=== PATIENT | male | born 1990 | race African-American/Black ===

== ENCOUNTER 2017-11-10 11:31 | Emergency (ER) | payer MEDICARE, MEDICAID ==
[2017-11-10] MEDS ORDERED: Ketorolac Tromethamine 60 MG/2 ML VIAL ONE (12:00)
== END 2017-11-10 12:20 | disposition home or self-care (01) ==
LOC: ERS 11:31
DX: M62.830 Muscle spasm of back (principal); B20 Human immunodeficiency virus [HIV] disease; F32.9 Major depressive disorder, single episode, unspecified; F17.210 Nicotine dependence, cigarettes, uncomplicated; Z79.899 Other long term (current) drug therapy
CPT/HCPCS: 96372; J1885

== ENCOUNTER 2018-02-11 17:51 | Emergency (ER) | payer MEDICARE, MEDICAID | END 2018-02-11 18:27 | disposition home or self-care (01) | LOC: ERS 17:51 | DX: M62.830 Muscle spasm of back (principal); F17.210 Nicotine dependence, cigarettes, uncomplicated; B20 Human immunodeficiency virus [HIV] disease; Z79.899 Other long term (current) drug therapy | CPT/HCPCS: 99283 ==

== ENCOUNTER 2019-07-25 04:34 | Emergency (ER) | payer MEDICARE, OTHER ==
[2019-07-25] MEDS ORDERED: Sterile Water 10 ML ONE (05:03)
[2019-07-25] MEDS ORDERED: cefTRIAXone\\ROCEPHIN 250 MG VIAL ONE (05:03)
[2019-07-25] MEDS ORDERED: Azithromycin 250 MG TAB ONE (05:03)
[2019-07-25 05:20] LABS: Bacteria/HPF None Seen HPF (None Seen); Bilirubin Negative (Negative); Blood, Urine Negative (Negative); Clarity Clear (Clear); Glucose, Urine (Dipstick) Normal (Negative); Leukocyte Negative Leu/uL (Negative); Nitrite Negative (Negative); Protein, Urine (Dipstick) 50 mg/dL (Neg-Trace); RBC/HPF 0-3 HPF (0-3); Squamous Epithelial None Seen HPF (0-3); Urobilinogen 3 mg/dL (Less than 2); WBC/HPF 0-3 HPF (0-3)
== END 2019-07-25 05:25 | disposition home or self-care (01) ==
LOC: ERS 04:34
DX: R30.0 Dysuria (principal); B20 Human immunodeficiency virus [HIV] disease; F32.9 Major depressive disorder, single episode, unspecified; F17.210 Nicotine dependence, cigarettes, uncomplicated; Z79.899 Other long term (current) drug therapy
CPT/HCPCS: 81003; 81015; 96372; 99283; J0696

== ENCOUNTER 2020-01-03 10:09 | Emergency (ER) | payer BC, MEDICARE, OTHER | END 2020-01-03 10:48 | disposition home or self-care (01) | LOC: ERS 10:09 | DX: K60.2 Anal fissure, unspecified (principal); K62.5 Hemorrhage of anus and rectum; B20 Human immunodeficiency virus [HIV] disease; F32.9 Major depressive disorder, single episode, unspecified; F17.210 Nicotine dependence, cigarettes, uncomplicated; Z79.899 Other long term (current) drug therapy | CPT/HCPCS: 99283 ==

== ENCOUNTER 2020-01-05 18:46 | Emergency (ER) | payer BC, MEDICARE, OTHER ==
[2020-01-05 19:56] LABS: #Basophils 0.1 thou/uL (0.0-0.2); #Eosinphils 0.1 thou/uL (0.0-0.7); #Lymphocytes 3.1 thou/uL (1.20-3.40); #Monocytes 0.9 thou/uL (0.11-0.59); #Neutrophils 4.3 thou/uL (1.40-6.50); %Basophils 1.2 % (0.0-1.0); %Eosinophils 1.1 % (0.0-10.0); %Lymphocytes 36.4 % (21.0-51.0); %Monocytes 10.3 % (0.0-10.0); %Neutrophils 51.1 % (42.0-75.0); Hemoglobin 14.4 g/dL (14.0-18.0); Mean Corpuscular HGB CONC 33.9 g/dL (32.0-36.0); Mean Corpuscular Hemoglobin 30.9 pg (27.0-31.0); Mean Corpuscular Volume 91.2 fL (78.0-98.0); Mean Platelet Volume 7.3 fL (7.4-10.4); Platelet Count 287 thou/uL (130-400); RBC Distribution Width 12.7 % (11.5-14.5); Red Blood Cell (RBC) Count 4.67 mill/uL (4.70-6.10); White Blood Cell (WBC) Count 8.5 thou/uL (4.8-10.8)
[2020-01-05 20:16] LABS: ALT (SGPT) 7 U/L (8-55); AST (SGOT) 16 U/L (5-34); Albumin 3.4 g/dL (3.5-5.0); Alkaline Phosphatase 61 U/L (40-110); Anion Gap 13 mmol/L (10-20); BUN (Urea Nitrogen) 10 mg/dL (8.9-20.6); Bilirubin, Total 0.3 mg/dL (0.2-1.2); Calc. Creatinine Clearance 0 mL/min (70-130); Calcium 8.8 mg/dL (7.8-10.44); Carbon Dioxide 27 mmol/L (22-29); Chloride 99 mmol/L (98-107); Estimated GFR-MDRD Greater than 90; Globulin 4.2 g/dL (2.4-3.5); Glucose 101 mg/dL (70-105); Potassium 4.1 mmol/L (3.5-5.1); Protein, Total 7.6 g/dL (6.0-8.3); Sodium 135 mmol/L (136-145)
--- NOTE | 2020-01-05 21:06 | CT ---
CT ABDOMEN AND PELVIS WITH IV CONTRAST: 01/05/20 INDICATIONS: Rectal pain. Assess for perirectal abscess. FINDINGS: The lung bases are clear. Liver, spleen and pancreas unremarkable. The spleen size is upper normal me asured at 12 cm. Adrenal glands and kidneys are unremarkable. Small bowel loops normal caliber. Lack of intraabdominal fat plane limits detail. The colon is distended with stool and gas. Images through the pelvis show mildly distended urinary bladder. Prostate unremarkable. On the last image at the anorectal region, there is a low density collection to the left of midline m easuring 2.0 cm consistent with a small perirectal abscess near the anorectal junction. IMPRESSION: 1. Small fluid collection seen in the anorectal region consistent with abscess measuring 2 cm to the left of midline. 2. Large volume stool and gas throughout the mildly dilated colon. POS: [facility]
[2020-01-05] MEDS ORDERED: Ketorolac Tromethamine 30 MG/ML VIAL ONE (21:29)
[2020-01-05] MEDS ORDERED: Piperacillin/Tazobactam 4.5 GM VIAL ONE (21:38)
== END 2020-01-05 22:21 | disposition home or self-care (01) ==
LOC: ERS 18:46
DX: K61.2 Anorectal abscess (principal); F32.9 Major depressive disorder, single episode, unspecified; B20 Human immunodeficiency virus [HIV] disease; F17.210 Nicotine dependence, cigarettes, uncomplicated; Z79.899 Other long term (current) drug therapy
CPT/HCPCS: 36415; 74177; 80053; 85025; 96365; 96375; J1885; J2543

== ENCOUNTER 2020-11-22 17:06 | Emergency (ER) | payer BC, MEDICARE, OTHER ==
[2020-11-23 08:30] LABS: SARS-CoV-2 PCR by NAA Not Detected (NotDetected)
== END 2020-11-22 18:17 | disposition home or self-care (01) ==
LOC: ERS 17:06
DX: J02.9 Acute pharyngitis, unspecified (principal); Z20.822 Contact with and (suspected) exposure to COVID-19; F17.210 Nicotine dependence, cigarettes, uncomplicated
CPT/HCPCS: 99283; U0003; U0005

== ENCOUNTER 2021-01-31 00:22 | Emergency (ER) | payer BC, MEDICARE, OTHER | END 2021-01-31 01:40 | disposition home or self-care (01) | LOC: ERS 00:22 | DX: B20 Human immunodeficiency virus [HIV] disease (principal); J02.8 Acute pharyngitis due to other specified organisms; F17.210 Nicotine dependence, cigarettes, uncomplicated | CPT/HCPCS: 99282 ==

== ENCOUNTER 2021-03-18 02:03 | Emergency (ER) | payer BC, MEDICARE, OTHER | END 2021-03-18 02:40 | disposition home or self-care (01) | LOC: ERS 02:03 | DX: B86 Scabies (principal); F17.210 Nicotine dependence, cigarettes, uncomplicated | CPT/HCPCS: 99282 ==

== ENCOUNTER 2023-07-29 06:44 | Day surgery (SDC) | payer MEDICARE, MEDICAID ==
[2023-07-26 09:41] VITALS: BMI 17.5
[2023-07-29] MEDS ORDERED: EPINEPHrine 1 MG/ML VIAL ONE (06:49)
[2023-07-29] MEDS ORDERED: Bupivacaine 0.25% HCL 30 ML VIAL ONE (06:50)
[2023-07-29] MEDS ORDERED: Lidocaine 1% (PF) 30 ML VIAL ONE (06:50)
[2023-07-29] MEDS ORDERED: PROPOFOL 20 ML ONE ×2 (06:57→07:35)
[2023-07-29] MEDS ORDERED: Lidocaine 1% PF 5 ML VIAL ONE (06:58)
[2023-07-29] MEDS ORDERED: fentaNYL 50 mcg/mL 1 mL Vial ONE (06:58)
[2023-07-29] MEDS ORDERED: CEFAZOLIN 2 GM VIAL ONE (07:02)
[2023-07-29] MEDS ORDERED: Ketorolac Tromethamine 30 MG (1 mL) VIAL ONE (07:02)
[2023-07-29] MEDS ORDERED: Acetaminophen 500 MG TAB ONE (07:02)
[2023-07-29] MEDS ORDERED: Sodium Chloride 0.9% 100 ML ONE (07:03)
[2023-07-29] MEDS ORDERED: PHENYLEPHRINE-NS 100 MCG/ML 10 ML SYRINGE ONE (07:41)
[2023-07-29] MEDS ORDERED: Dexamethasone 20 MG/5 ML VIAL ONE (07:48)
[2023-07-29] MEDS ORDERED: Ondansetron PF 4 MG/2 ML Vial ONE (07:48)
== END 2023-07-29 09:52 | disposition home or self-care (01) ==
LOC: SDC 06:44
PROVIDERS: ATTEND Specialist
PROC: 0JH63WZ Insertion of Totally Implantable Vascular Access Device into Chest Subcutaneous Tissue and Fascia, Percutaneous Approach (ICD-10-PCS; principal; 2023-07-29)
DX: C46.9 Kaposi's sarcoma, unspecified (principal)
CPT/HCPCS: 36561; 71045; C1788; J0171; J3010; J0665; J1100; J1642; J1885; J2001; J2405; J2704; J3490

== ENCOUNTER 2023-08-06 14:46 | Outpatient (CLI) | payer MEDICARE, MEDICAID | END 2023-08-06 14:47 | disposition home or self-care (01) | LOC: ULT 14:46 | PROVIDERS: ATTEND Internal Medicine | DX: Z51.11 Encounter for antineoplastic chemotherapy (principal); C46.1 Kaposi's sarcoma of soft tissue; I08.8 Other rheumatic multiple valve diseases; Z79.899 Other long term (current) drug therapy | CPT/HCPCS: 93306 ==

== ENCOUNTER 2023-12-13 08:06 | Outpatient (CLI) | payer MEDICARE, MEDICAID ==
[2023-12-13] MEDS ORDERED: Iopamidol 370 76% 100 ML VIAL ONE (12:34)
== END 2023-12-13 08:07 | disposition home or self-care (01) ==
LOC: BICCT 08:06
PROVIDERS: ATTEND Internal Medicine
DX: C46.9 Kaposi's sarcoma, unspecified (principal); R91.8 Other nonspecific abnormal finding of lung field; D73.89 Other diseases of spleen; K76.9 Liver disease, unspecified
CPT/HCPCS: 71260; 74177; Q9967

== ENCOUNTER 2024-03-17 11:35 | Outpatient (CLI) | payer MEDICARE, MEDICAID ==
[2024-03-17] MEDS ORDERED: Iopamidol 370 76% 100 ML VIAL ONE (15:20)
== END 2024-03-17 11:36 | disposition home or self-care (01) ==
LOC: BICCT 11:35
PROVIDERS: ATTEND Internal Medicine
DX: C46.1 Kaposi's sarcoma of soft tissue (principal); R91.8 Other nonspecific abnormal finding of lung field; R59.0 Localized enlarged lymph nodes
CPT/HCPCS: 71260; 74177

== ENCOUNTER 2025-01-05 02:23 | Emergency (ER) | payer MEDICARE, MEDICAID ==
[2025-01-05] MEDS ORDERED: Cefepime 2 GM VIAL ONE (03:08)
[2025-01-05] MEDS ORDERED: Vancomycin 1 GM/200 ML (FROZEN) BAG ONE (03:09)
[2025-01-05] MEDS ORDERED: Norepinephrine 8 MG/0.9% NS 250 ML ONE (03:09)
[2025-01-05] MEDS ORDERED: Acetaminophen 500 MG TAB ONE (03:11)
[2025-01-05] MEDS ORDERED: dilTIAZem 25 MG/5 ML VIAL ONE (03:25)
[2025-01-05 03:36] LABS: Hematocrit 52.6 % (42.0-52.0); Hemoglobin 16.4 g/dL (14.0-18.0); Mean Corpuscular Hemoglobin 29.6 pg (27.0-31.0); Mean Corpuscular Volume 94.9 fL (78.0-98.0); Platelet Count 227 10x3/uL (130-400); Red Blood Cell (RBC) Count 5.54 mill/uL (4.70-6.10); White Blood Cell (WBC) Count 4.50 10x3/uL (4.8-10.8)
[2025-01-05 03:48] LABS: ALT (SGPT) Less than 7 U/L (Less than 45); AST (SGOT) 30 U/L (11-34); Albumin 3.9 g/dL (3.1-4.5); Alkaline Phosphatase 79 U/L (40-110); Anion Gap 26 mmol/L (10-20); BUN (Urea Nitrogen) 13 mg/dL (8.9-20.6); Bilirubin, Total 0.7 mg/dL (0.3-1.2); Calc. Creatinine Clearance 0 mL/min (70-130); Calcium 9.9 mg/dL (7.8-10.44); Carbon Dioxide 15 mmol/L (22-29); Chloride 97 mmol/L (98-107); Globulin 5.4 g/dL (2.4-3.5); Glucose 80 mg/dL (70-105); Lipase 8 U/L (8-78); Magnesium 1.4 mg/dL (1.6-2.6); Potassium 3.0 mmol/L (3.5-5.1); Sodium 135 mmol/L (136-145)
[2025-01-05] MEDS ORDERED: Magnesium 2 GM/50 ML BAG (IN WATER) ONE (04:02)
[2025-01-05 04:14] LABS: Free T4 (Free Thyroxine) 1.11 ng/dL (0.70-1.48); Thyroid Stimulating Hormone 2.5803 uIU/mL (0.35-4.94)
[2025-01-05 05:52] LABS: Anisocytosis SLIGHT = 6-15 cells HPF (0-5); Platelet Adequacy Comment Platelets Normal
[2025-01-05] MEDS ORDERED: Iopamidol-370 76% 500 ML MDV (1 ML CHARGE) ONE (11:04)
== END 2025-01-05 09:54 | disposition short-term general hospital (02) ==
LOC: ERS 02:23
DX: A41.9 Sepsis, unspecified organism (principal); N17.9 Acute kidney failure, unspecified; E87.6 Hypokalemia; E83.42 Hypomagnesemia; E87.20 Acidosis, unspecified; C79.51 Secondary malignant neoplasm of bone; C78.89 Secondary malignant neoplasm of other digestive organs; C78.7 Secondary malignant neoplasm of liver and intrahepatic bile duct; B20 Human immunodeficiency virus [HIV] disease; F17.210 Nicotine dependence, cigarettes, uncomplicated
CPT/HCPCS: 71045; 75635; 83605; 83690; 83735; 84439; 84484; 87040; 87077; 87149 ×2; 87186; 93005; J0692; J3010; J3373; J3475; Q9967; 80053; 84443; 85025; 96361; 96365; 96367; 96375; 96376